=== PATIENT | male | born 1960 | race Caucasian/White ===

== ENCOUNTER 2024-11-30 08:02 | Outpatient (CLI) | payer BC ==
[2024-11-30 09:34] LABS: #Basophils 0.03 10x3/uL (0.0-0.2); %Basophils 0.3 % (0.0-1.0); %Eosinophils 0.3 % (0.0-10.0); %Lymphocytes 12.8 % (21.0-51.0); %Monocytes 7.9 % (0.0-10.0); %Neutrophils 78.3 % (42.0-75.0); Hematocrit 43.6 % (42.0-52.0); Hemoglobin 14.8 g/dL (14.0-18.0); Mean Corpuscular HGB CONC 33.9 g/dL (32.0-36.0); Mean Corpuscular Hemoglobin 34.5 pg (27.0-31.0); Mean Corpuscular Volume 101.6 fL (78.0-98.0); Mean Platelet Volume 10.2 fL (7.4-10.4); Platelet Count 274 10x3/uL (130-400); RBC Distribution Width 13.4 % (11.5-14.5); Red Blood Cell (RBC) Count 4.29 mill/uL (4.70-6.10)
== END 2024-11-30 08:03 | disposition home or self-care (01) ==
LOC: LABBT 08:02
PROVIDERS: ATTEND Orthopaedic Surgery Hand Surgery
DX: Z01.812 Encounter for preprocedural laboratory examination (principal); M72.0 Palmar fascial fibromatosis [Dupuytren]
CPT/HCPCS: 85025

== ENCOUNTER 2024-12-03 11:26 | Day surgery (SDC) | payer BC ==
[2024-11-30 08:27] VITALS: BMI 23.9
[2024-12-03] MEDS ORDERED: PROPOFOL 20 ML ONE ×2 (12:58→14:22)
[2024-12-03] MEDS ORDERED: Lidocaine 1% PF 5 ML VIAL ONE (12:58)
[2024-12-03] MEDS ORDERED: Clindamycin/D5W 900 mg/50 ml Premix Bag ONE (13:45)
[2024-12-03] MEDS ORDERED: Midazolam HCl 2 mg/2 ml Vial ONE (13:59)
[2024-12-03] MEDS ORDERED: Collagenase Clostridium Hist. 0.9 MG VIAL IJ SCH (14:00)
[2024-12-03] MEDS ORDERED: fentaNYL 50 mcg/mL 1 mL Vial ONE (14:00)
[2024-12-03] MEDS ORDERED: Collagenase Clostridium Hist. 0.9 MG VIAL ONE (14:00)
[2024-12-03] MEDS ORDERED: Ketorolac Tromethamine 30 MG (1 mL) VIAL ONE (15:03)
== END 2024-12-03 15:48 | disposition home or self-care (01) ==
LOC: SDC 11:26
PROVIDERS: ATTEND Orthopaedic Surgery Hand Surgery
PROC: 3E013TZ Introduction of Destructive Agent into Subcutaneous Tissue, Percutaneous Approach (ICD-10-PCS; principal; 2024-12-03)
DX: M72.0 Palmar fascial fibromatosis [Dupuytren] (principal); F10.90 Alcohol use, unspecified, uncomplicated; Z85.828 Personal history of other malignant neoplasm of skin; Z90.81 Acquired absence of spleen; Z88.0 Allergy status to penicillin; Z98.890 Other specified postprocedural states
CPT/HCPCS: J0775; J1885; J2250; J2704; J3010; J3490

== ENCOUNTER 2025-10-07 12:44 | Outpatient (CLI) | payer MEDICARE, BC | END 2025-10-07 12:45 | disposition home or self-care (01) | LOC: SCSRAD 12:44 | PROVIDERS: ATTEND Nurse Practitioner Family | DX: S69.92XA Unspecified injury of left wrist, hand and finger(s), initial encounter (principal); S62.627A Displaced fracture of middle phalanx of left little finger, initial encounter for closed fracture ==

== ENCOUNTER 2025-11-08 09:23 | Day surgery (SDC) | payer MEDICARE, BC ==
[2025-11-07 09:24] VITALS: BMI 25.5
[2025-11-08] MEDS ORDERED: Bacitracin Zinc Ointment 30 gm TUBE ONE (10:44)
[2025-11-08] MEDS ORDERED: fentaNYL PF 100 MCG/2 ML SYRINGE ONE (11:28)
[2025-11-08] MEDS ORDERED: Lidocaine 1% PF 5 ML VIAL ONE (11:28)
[2025-11-08] MEDS ORDERED: Ondansetron PF 4 MG/2 ML Vial ONE (11:42)
[2025-11-08] MEDS ORDERED: Vancomycin 1 GM/200 ML (FROZEN) BAG ONE (11:43)
[2025-11-08 11:47] LABS: Hematocrit 35.1 % (42.0-52.0); Hemoglobin 10.9 g/dL (14.0-18.0); Mean Corpuscular Hemoglobin 27.4 pg (27.0-31.0); Mean Corpuscular Volume 88.2 fL (78.0-98.0); Platelet Count 281 10x3/uL (130-400); Red Blood Cell (RBC) Count 3.98 mill/uL (4.70-6.10); White Blood Cell (WBC) Count 5.11 10x3/uL (4.8-10.8)
[2025-11-08] MEDS ORDERED: PHENYLEPHRINE-NS 100 MCG/ML 10 ML SYRINGE ONE (12:00)
[2025-11-08] MEDS ORDERED: Ketorolac Tromethamine 30 MG (1 mL) VIAL ONE (12:00)
[2025-11-08] MEDS ORDERED: Glycopyrrolate 0.2 MG/ML 5 ML SYRINGE ONE (12:26)
[2025-11-08 12:27] LABS: Anisocytosis MARKED = >30 cells HPF (0-5); Burr Cells SLIGHT = 2-5 cells HPF (0-1); Macrocytosis MODERATE=16-30 cells HPF (0-5); Platelet Adequacy Comment Platelets Normal; Polychromasia SLIGHT = 2-3 cells HPF (0-2); Smudge Cells 7.0 %; Stomatocytes SLIGHT = 2-5 cells HPF (0-1); Target Cells SLIGHT = 2-5 cells HPF (0-1)
== END 2025-11-08 15:25 | disposition home or self-care (01) ==
LOC: SDC 09:23
PROVIDERS: ATTEND Orthopaedic Surgery Hand Surgery
PROC: 0PSV04Z Reposition Left Finger Phalanx with Internal Fixation Device, Open Approach (ICD-10-PCS; principal; 2025-11-08)
DX: S62.617P Displaced fracture of proximal phalanx of left little finger, subsequent encounter for fracture with malunion (principal); S62.62 Displaced fracture of middle phalanx of finger; E78.5 Hyperlipidemia, unspecified; Z85.828 Personal history of other malignant neoplasm of skin; Z98.890 Other specified postprocedural states; Z88.0 Allergy status to penicillin; W19.XXXD Unspecified fall, subsequent encounter; Y93.66 Activity, soccer
CPT/HCPCS: 26735; 73140; 85025; A6223; C1713 ×4; J1100; J1885; J2405; J3373